=== PATIENT | female | born 1985 | race Caucasian/White ===

== ENCOUNTER 2018-09-04 19:09 | Emergency (ER) | payer OTHER ==
[2018-09-04 19:12] VITALS: BP 151/99; PULSE 108; RESP 16; TEMP 98.3; O2SAT 100
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
== END 2018-09-04 22:11 | disposition home or self-care (01) ==
LOC: H.ER 19:09
DX: S80.812A Abrasion, left lower leg, initial encounter (principal); V03.90XA Pedestrian on foot injured in collision with car, pick-up truck or van, unspecified whether traffic or nontraffic accident, initial encounter; Y92.410 Unspecified street and highway as the place of occurrence of the external cause; S80.212A Abrasion, left knee, initial encounter